=== PATIENT | female | born 1995 | race African-American/Black ===

== ENCOUNTER 2019-02-19 03:25 | Emergency (ER) | payer MEDICAID ==
[~2019-02-19] VITALS: Ht 167.6 cm; Wt 59.0 kg
[2019-02-19 03:27] VITALS: BP 142/80
== END 2019-02-19 05:26 | disposition left against medical advice (07) ==
LOC: ER 03:25
DX: Z53.21 Procedure and treatment not carried out due to patient leaving prior to being seen by health care provider (principal)